=== PATIENT | male | born 1950 | race Caucasian/White ===

== ENCOUNTER → 2017-05-08 | Outpatient (CLI) | payer MEDICARE, MEDICAID ==
[~2017-05-08] MED LIST: AMLO5TAB PO; AMLODIPINE10 MG PO; AMOXIL500 M1 PO; ASPI-COR81 M1 PO; ASPIRIN325 M1 PO; ATORVASTATIN 8080 MG PO; BACTRIM 400 MG-1 TAB PO; BRILINTA90 M1 PO; CARVEDILOL6.25 MG PO; CIPRO 500MG TA500 MG PO; CLARITIN10 MG OR; FLEXERIL10 MG PO; HYDROCODONE/ACE1 TA5 PO; IBU-8800 MG PO; LIPITOR80 MG PO; LISINOPRIL 5MG T5 MG PO; LORTAB 5/500 501 TAB PO; LOSARTAN POTASS50 MG PO; LOTRIMIN 0.1% C15 GM TP; MEDROL 4MG. DOSE4 MG PO; METOPROLOL SUCC50 M2 PO; MOBIC7.5 MG PO; NEXIUM40 MG PO; NITROGLYCERIN0.4 MG SL; NORCO 325 MG-101 TAB PO; NORCO 325 MG-51 TAB PO; ROBAXIN-750750 MG PO; SIMVASTATIN10 MG PO; TAMSULOSIN HYD0.4 MG PO; TESSALON PERLE100 MG PO; VIBRAMYCIN HYC100 MG PO; ZETIA10 MG PO
[2017-05-08 19:56] LABS: AMPHETAMINES/METAMPHETAMINES NEGATIVE ng/mL (<1000)
== END ==
LOC: LAB 15:46
PROVIDERS: Internal Medicine Adolescent Medicine
DX: Z51.81 Encounter for therapeutic drug level monitoring (principal)